=== PATIENT | female | born 1980 | race Caucasian/White ===

== ENCOUNTER 2022-08-11 15:51 | Outpatient (CLI) | payer OTHER, SELFPAY | END 2022-08-11 15:52 | disposition home or self-care (01) | PROVIDERS: Visit Provider Nurse Practitioner Family | DX: R30.0 Dysuria (principal); N39.0 Urinary tract infection, site not specified | CPT/HCPCS: 87086; 87186 ==

== ENCOUNTER 2023-04-18 22:15 | Emergency (ER) | payer OTHER, SELFPAY ==
[2023-04-18 22:21] VITALS: BP 121/96; PULSE 75; RESP 16; O2SAT 96; BMI 33.8
--- NOTE | 2023-04-18 22:30 | ED.GENADULT ---
HPI - General Adult General Chief complaint: Extremity Pain/Injury, Lower Stated complaint: R ankle injury Time Seen by Provider: 04/18/23 22:29 History of Present Illness HPI narrative: 0800 at work hit R ankle on bed, states swelling and pain. 43-year-old woman presenting to emergency department complaint of right ankle pain. She was at work and struck her right ankle on the frame/leg of a bed attempting to help a resident. Has just had escalating severe pain; hurts generally and to flex or extend the foot. Some swelling. Worried that there might be a fracture. No other injuries were sustained. Tried icing. Aspercreme. Related Data Home Medications Medication Instructions Recorded Confirmed albuterol sulfate 90 mcg/actuation 1 puff inhalation PRN 11/22/22 04/27/23 aerosol inhaler (Ventolin HFA) phenazopyridine 95 mg tablet (Azo 95 mg PO TID PRN 11/22/22 04/27/23 Urinary Pain Relief) Allergies Allergy/AdvReac Type Severity Reaction Status Date / Time levofloxacin Allergy Unknown Joint Pain Verified 11/22/22 19:09 Review of Systems Status of ROS: Reports: 6 or more systems reviewed and unremarkable except as noted in History and below [facility] Medical History Dysuria ?R30.0 - Dysuria (ICD-10) Surgical History No significant past surgical history Social History Smoking Status: Former smoker Second hand tobacco smoke exposure: No How often do you have a drink containing alcohol: never How often do you have six or more drinks on one occasion: Never AUDIT-C Alcohol total score: 0 Non-prescribed substance use: denies use Exam Narrative: Exam Narrative: Pleasant. Clearly uncomfortable. Skin is warm and dry. There is mild swelling and exquisite tenderness to palpation over the medial malleolus of the ankle in question the right. Pain exacerbated with flexion extension ankle. There is no defect in the Achilles. Lateral malleolus is unremarkable. No navicular, base of 5th metatarsal tenderness. Const: Vital Signs, click to edit/add: Vital Signs - 24 hr 04/18/23 22:21 Pulse Rate [Pulse Oximeter] 75 Respiratory Rate 16 Blood Pressure [Ri ght Upper Arm] 121/96 H Pulse Oximetry 96 Oxygen Delivery Me thod Room Air Documenting provider has reviewed patient's vital signs: yes Course Vital Signs Vital signs: Initial Vital Signs Pulse Rate 75 04/18/23 22:21 Respiratory Rate 16 04/18/23 22:21 Blood Pressure 121/96 H 04/18/23 22:21 Blood Pressure Mean 104 04/18/23 22:21 Blood Pressure Position Sitting 04/18/23 22:21 Pulse Oximetry 96 04/18/23 22:21 Oxygen Delivery Method Room Air 04/18/23 22:21 Vital Signs Pulse Rate 75 04/18/23 22:21 Respiratory Rate 16 04/18/23 22:21 Blood Pressure 121/96 H 04/18/23 22:21 Pulse Oximetry 96 04/18/23 22:21 Oxygen Delivery Method Room Air 04/18/23 22:21 Temperature 98.0 F 04/18/23 23:42 Pulse Rate 75 04/18/23 23:42 Respiratory Rate 16 04/18/23 23:42 Blood Pressure 118/85 04/18/23 23:42 Pulse Oximetry 96 04/18/23 23:39 Oxygen Delivery Method Room Air 04/18/23 23:39 Medical Decision Making MDM Narrative Medical decision making narrative: I think this is most likely periosteal contusion/bruise/hematoma. Doubtful fracture but it is prudent to check. Do not think there is any ligamentous or tendon injury here. Ankle x-rays reviewed by me do not appear to show any acute bony abnormality. Achilles as far as able to visualize looks to be intact as well. Any movement really seems to exacerbate this. Therefore we decided to place a posterior splint primarily for comfort. I fashioned a doubled posterior ankle/leg splint had applied with Gigi wrap. Crutches. Dispensed trial of lidocaine patch. See patient discharge plan. Discharge Plan Discharge Clinical Impression: Bone bruise Acute ankle pain Qualifiers: Laterality: right Qualified Code(s): M25.571 - Pain in right ankle and joints of right foot Patient Disposition: Home w/ Parent or Adult Condition: Stable Additional Instructions: Can wear this posterior splint for comfort. I would cut this lidocaine patch in half and center it over the medial malleolus; where you have pain. If the lidocaine patch is helpful, can purchase more [id number]. Use crutches as needed as well. Follow-up in a week if just not improved. Can take up to 800 mg of ibuprofen or up to 1000 mg of acetaminophen per dose. These can also be combined. Alternative to the ibuprofen might be up to 500 mg naproxen 2 times daily. Naproxen can also be combined with acetaminophen; do not take it at the same time dosing as ibuprofen. Prescriptions: No Action albuterol sulfate [Ventolin HFA] 90 mcg/actuation HFA aerosol inhaler 1 puff inhalation PRN Patient Comments: INHALE 1 TO 2 PUFFS BY MOUTH EVERY 4 HOURS NEEDED phenazopyridine [Azo Urinary Pain Relief] 95 mg tablet 95 mg PO TID PRN Follow Up/Referrals: Provider,Not a Local [Primary Care Provider] - Stand Alone Forms: [employer] Info Instructions
--- NOTE | 2023-04-18 22:36 | CRLHL7_ITS ---
For Patients: As a result of the Century Cures Act, medical imaging exams and procedure reports are released immediately into your electronic medical record. You may view this report before your referring provider. If you have questions, please contact your health care provider. INDICATION: Impact to right medial malleolus, severe ankle pain, injury TECHNIQUE: Ankle radiograph 3 views right COMPARISON: None FINDINGS: Bone: No acute fractures or aggressive bone lesions are identified. Joint: The ankle mortise joint and the visualized hindfoot joints are unremarkable in appearance. No significant ankle effusion is seen. Soft tissue: The Kager fat pad and the Achilles` tendon are normal in appearance. No radiopaque foreign bodies are seen. IMPRESSION: 1. No acute osseous injuries or abnormalities are noted. Dictated by: Gorge Jordan MD @ 04/18/2023 23:00:59 (Electronically Signed)
[2023-04-18 23:39] VITALS: BP 118/85; PULSE 75; RESP 16; TEMP 36.7; O2SAT 96
[2023-04-18 23:42] VITALS: BP 118/85; PULSE 75; RESP 16; TEMP 36.7
[2023-04-18] MEDS: LIDOCAINE 5% PATCH 1 PATCH TRANSDERMA (23:43)
== END 2023-04-18 23:51 | disposition home or self-care (01) ==
PROVIDERS: Emergency Provider Family Medicine
DX: M25.571 Pain in right ankle and joints of right foot (principal); W22.8XXA Striking against or struck by other objects, initial encounter
CPT/HCPCS: 29515; 73610; 99283; 99284; A9270